=== PATIENT | male | born 1985 | race Caucasian/White ===

== ENCOUNTER → 2017-07-16 | Outpatient (REF) | payer OTHER, MEDICAID ==
[2017-07-16 11:45] LABS: BASO % 0.7 % (0.0-1.0); EOS # 0.1 10^3/uL (0.0-0.50); EOS % 1.1 % (0.0-3.0); HEMATOCRIT 46.5 % (42.0-52.0); HEMOGLOBIN 15.3 g/dl (14.0-18.0); IMMATURE GRANULOCYTE % 0.2 % (0-3.0); LYMPH % 37.6 % (24.0-44.0); MEAN CORPUSCULAR HGB CONC 32.9 g/dl (32.0-36.5); MEAN CORPUSCULAR VOLUME 88.1 fl (80.0-96.0); MONO # 0.5 10^3/uL (0.0-0.8); MONO % 8.8 % (0.0-5.0); NEUTROPHILS # 2.8 10^3/uL (1.8-7.7); NEUTROPHILS % 51.6 % (36.0-66.0); PLATELET COUNT, AUTOMATED 183 10^3/uL (150-450); RED BLOOD COUNT 5.28 10^6/uL (4.30-6.10); RED CELL DISTRIBUTION WIDTH 14.5 % (11.5-14.5); WHITE BLOOD COUNT 5.4 10^3/uL (4.0-10.0)
[2017-07-16 12:16] LABS: ALBUMIN 4.6 GM/DL (3.2-5.2); ALBUMIN/GLOBULIN RATIO 1.35 (1.00-1.93); ALKALINE PHOSPHATASE 76 U/L (45-117); ALT/SGPT 19 U/L (12-78); ANION GAP 9 MEQ/L (8-16); AST/SGOT 12 U/L (7-37); BILIRUBIN,TOTAL 0.8 MG/DL (0.2-1.0); BLOOD UREA NITROGEN 10 MG/DL (7-18); CALCIUM LEVEL 9.5 MG/DL (8.5-10.1); CARBON DIOXIDE LEVEL 28 MEQ/L (21-32); CHLORIDE LEVEL 103 MEQ/L (98-107); CHOLESTEROL LEVEL 139 MG/DL (<200); CHOLESTEROL RISK RATIO 2.355 (<5); CREATININE FOR GFR 1.05 MG/DL (0.70-1.30); GLOMERULAR FILTRATION RATE > 60.0 (>60); GLUCOSE, FASTING 80 MG/DL (70-100); HDL CHOLESTEROL 59 MG/DL (>40); LDL CHOLESTEROL 65.2 MG/DL (<100); NON-HDL-C 80 MG/DL; POTASSIUM SERUM 4.3 MEQ/L (3.5-5.1); SODIUM LEVEL 140 MEQ/L (136-145); TRIGLYCERIDES LEVEL 74 MG/DL (<150)
[2017-07-21 14:12] LABS: TESTOSTERONE %FREE+WEAKLY BOUN 27.1 % (9.0-46.0); TESTOSTERONE FREE+WEAKLY BOUND 126.8 ng/dL (40.0-250.0); TESTOSTERONE TOTAL 468 ng/dL (264-916)
== END ==
LOC: M SFHCCLAY 09:43
DX: Z13.6 Encounter for screening for cardiovascular disorders (principal); R79.89 Other specified abnormal findings of blood chemistry
CPT/HCPCS: 84443

== ENCOUNTER → 2017-07-30 | Outpatient (REF) | payer OTHER, MEDICAID ==
[2017-07-30 14:41] LABS: ALBUMIN 4.7 GM/DL (3.2-5.2); ALBUMIN/GLOBULIN RATIO 1.42 (1.00-1.93); ALKALINE PHOSPHATASE 69 U/L (45-117); ALT/SGPT 23 U/L (12-78); ANION GAP 8 MEQ/L (8-16); AST/SGOT 24 U/L (7-37); BILIRUBIN,TOTAL 0.6 MG/DL (0.2-1.0); BLOOD UREA NITROGEN 13 MG/DL (7-18); CALCIUM LEVEL 9.3 MG/DL (8.5-10.1); CARBON DIOXIDE LEVEL 27 MEQ/L (21-32); CHLORIDE LEVEL 105 MEQ/L (98-107); CREATININE FOR GFR 1.03 MG/DL (0.70-1.30); GLOMERULAR FILTRATION RATE > 60.0 (>60); GLUCOSE, FASTING 85 MG/DL (70-100); POTASSIUM SERUM 4.2 MEQ/L (3.5-5.1); SODIUM LEVEL 140 MEQ/L (136-145)
[2017-07-31 08:16] LABS: HEPATITIS A IgG TOTAL Negative (Negative)
[2017-07-31 08:16] LABS: HEPATITIS B CORE ANTIBODY IGG Negative (Negative)
[2017-07-31 12:00] LABS: HEPATITIS C VIRUS ABY INDEX 0.2 INDEX (<0.8)
[2017-07-31 12:01] LABS: HIV 1&2 SCREEN CENTAUR NEGATIVE (NEGATIVE)
== END ==
LOC: M LAB REF 13:15
DX: Z00.00 Encounter for general adult medical examination without abnormal findings (principal)
CPT/HCPCS: 86704

== ENCOUNTER → 2017-09-10 | Outpatient (CLI) | payer OTHER ==
[2017-09-11 10:18] LABS: PROLACTIN 18.5 NG/ML (2.1-17.7)
[2017-09-11 10:18] LABS: TESTOSTERONE 258 NG/DL (241-827)
[2017-09-11 10:19] LABS: FOLLICLE STIMULATING HORMONE 2.2 mIU/mL (1.4-18.1); LUTEINIZING HORMONE 1.8 mIU/mL (1.5-9.3)
== END ==
LOC: M WUC 09:50
DX: E29.1 Testicular hypofunction (principal)
CPT/HCPCS: 83001

== ENCOUNTER → 2018-01-26 | Outpatient (CLI) | payer OTHER | LOC: M WUC 09:24 | DX: R76.11 Nonspecific reaction to tuberculin skin test without active tuberculosis (principal) | CPT/HCPCS: 71046 ==

== ENCOUNTER 2018-03-07 02:29 | Emergency (ER) | payer OTHER | END 2018-03-07 03:38 | disposition home or self-care (01) | LOC: M ED 02:29 | DX: F43.0 Acute stress reaction (principal) | CPT/HCPCS: 99283 ==

== ENCOUNTER → 2019-01-04 | Outpatient (REF) | payer OTHER, MEDICAID ==
[2019-01-05 17:47] LABS: APPEARANCE, URINE CLEAR (CLEAR); BACTERIA, URINE AUTO NEGATIVE (NEGATIVE); BILIRUBIN, URINE AUTO NEGATIVE (NEGATIVE); BLOOD, URINE BLOOD NEGATIVE (NEGATIVE); COLOR, URINE YELLOW (YELLOW); GLUCOSE, URINE (UA) AUTO NEGATIVE (NEGATIVE); KETONE, URINE AUTO NEGATIVE (NEGATIVE); LEUKOCYTE ESTERASE, URINE AUTO NEGATIVE (NEGATIVE); MUCUS, URINE SMALL (NEGATIVE); NITRITE, URINE AUTO NEGATIVE (NEGATIVE); PROTEIN, URINE AUTO NEGATIVE (NEGATIVE); RBC, URINE AUTO 1 /HPF (0-3); SPECIFIC GRAVITY URINE AUTO 1.014 (1.002-1.035); SQUAMOUS EPITHELIAL CELL UR AU 0 /HPF (0-6); UROBILINOGEN, URINE AUTO 0.2 mg/dL (0.0-2.0); WBC, URINE AUTO 0 /HPF (0-3)
[2019-01-05 21:38] LABS: CHLAMYDIA DNA AMPLIFICATION NEGATIVE (NEGATIVE); GC DNA AMPLIFICATION NEGATIVE (NEGATIVE)
== END ==
LOC: M SFHCCAPE 16:11
PROVIDERS: ATTEND Physician Assistant
DX: R10.32 Left lower quadrant pain (principal); R10.31 Right lower quadrant pain

== ENCOUNTER → 2019-01-05 | Outpatient (CLI) | payer OTHER ==
--- NOTE | 2019-01-05 10:10 | REP ---
Scrotal sonography: History: Bilateral groin pain. Scrotal pain. Findings: High-resolution bilateral scrotal sonography shows no evidence of intratesticular mass lesion on either side. Testicular parenchyma is normal and homogeneous. Normal Doppler flow is seen in both testes with resistive indices measured at 0.77 and 0.71 on the right and left respectively by Doppler. Right testicular dimensions are 5.7 x 2.8 x 3.5 cm. Left testis measures 5.1 x 2.4 x 3.2 cm. There are tiny epididymal cysts, the largest of which is on the right measuring 2 mm. Impression: Normal bilateral scrotal sonography. Normal Doppler flow. Electronically Signed by Daren Bradley MD 01/05/2019 08:53 P
--- NOTE | 2019-01-05 10:19 | REP ---
Bilateral soft tissue ultrasound of the inguinal canal regions. History: Bilateral groin pain. Findings: The right inguinal canal has a normal appearance at rest and with Valsalva. On the left, there appears to be a small quantity of peritoneal fat extending into the proximal inguinal canal with Valsalva suggesting a small low left inguinal hernia. No cyst or mass is seen. Electronically Signed by Daren Bradley MD 01/05/2019 08:55 P
== END ==
LOC: M RAD 07:23
PROVIDERS: ATTEND Physician Assistant
DX: N50.811 Right testicular pain (principal); N50.812 Left testicular pain

== ENCOUNTER → 2019-11-16 | Outpatient (CLI) | payer BC | LOC: M OUTALCOH 07:59 | PROVIDERS: ATTEND Psychiatry & Neurology Addiction Medicine | DX: Z03.89 Encounter for observation for other suspected diseases and conditions ruled out (principal) ==

== ENCOUNTER → 2019-11-22 | Outpatient (RCR) | payer BC | LOC: M OUTALCOH 11:09 | PROVIDERS: ATTEND Psychiatry & Neurology Addiction Medicine | DX: F19.20 Other psychoactive substance dependence, uncomplicated (principal) ==

== ENCOUNTER → 2020-06-08 | Outpatient (CLI) | payer SELFPAY | LOC: M LABSMTC 13:10 | PROVIDERS: ATTEND Pediatrics | DX: Z20.822 Contact with and (suspected) exposure to COVID-19 (principal) ==

== ENCOUNTER → 2020-06-20 | Outpatient (CLI) | payer SELFPAY | LOC: M LABSMTC 13:34 | PROVIDERS: ATTEND Pediatrics | DX: Z20.822 Contact with and (suspected) exposure to COVID-19 (principal) ==

== ENCOUNTER 2021-07-30 18:27 | Emergency (ER) | payer BC ==
[~2021-07-30] VITALS: Ht 185.4 cm; Wt 86.4 kg
[2021-07-30 18:28] VITALS: BP 126/66
[2021-07-30 19:07] LABS: BILIRUBIN, URINE MANUAL OBSCURED (NEGATIVE); GLUCOSE, URINE (UA) MANUAL OBSCURED mg/dL (NEGATIVE); KETONE, URINE MANUAL OBSCURED mg/dL (NEGATIVE); UROBILINOGEN, URINE MANUAL OBSCURED mg/dl (NORMAL)
[2021-07-30 19:36] LABS: RBC, URINE TNTC /hpf (0-3)
[2021-07-30 19:37] LABS: BACTERIA, URINE NONE SEEN; HYALINE CAST, URINE NONE SEEN /lpf (0-1); SQUAMOUS EPITHELIAL CELL URINE NONE SEEN /hpf (SMALL AMT)
[2021-07-30 20:45] LABS: BASO % 0.4 % (0.0-1.0); EOS # 0.1 10^3/uL (0.0-0.5); EOS % 0.8 % (0.0-3.0); HEMATOCRIT 41.1 % (42.0-52.0); HEMOGLOBIN 13.4 g/dl (13.5-17.5); LYMPH # 2.1 10^3/uL (1.5-5.0); LYMPH % 20.1 % (24.0-44.0); MEAN CORPUSCULAR HEMOGLOBIN 29.4 pg (27.0-33.0); MEAN CORPUSCULAR HGB CONC 32.6 g/dl (32.0-36.5); MEAN CORPUSCULAR VOLUME 90.1 fl (80.0-96.0); MONO % 9.4 % (2.0-8.0); NEUTROPHILS # 7.2 10^3/uL (1.5-8.5); NEUTROPHILS % 68.9 % (36.0-66.0); PLATELET COUNT, AUTOMATED 204 10^3/uL (150-450); RED BLOOD COUNT 4.56 10^6/uL (4.30-6.10); WHITE BLOOD COUNT 10.4 10^3/uL (4.0-10.0)
[2021-07-31 00:01] LABS: GC DNA AMPLIFICATION NEGATIVE (NEGATIVE)
== END 2021-07-30 22:01 | disposition home or self-care (01) ==
LOC: M ED 18:27
DX: R31.9 Hematuria, unspecified (principal); D64.9 Anemia, unspecified; K59.00 Constipation, unspecified; N32.89 Other specified disorders of bladder; F10.10 Alcohol abuse, uncomplicated; Z87.442 Personal history of urinary calculi

== ENCOUNTER → 2021-08-02 | Outpatient (REF) | payer BC, MEDICAID ==
[2021-08-02 13:52] LABS: APPEARANCE, URINE CLEAR (CLEAR); BACTERIA, URINE AUTO NEGATIVE (NEGATIVE); BILIRUBIN, URINE AUTO NEGATIVE (NEGATIVE); BLOOD, URINE BLOOD NEGATIVE (NEGATIVE); COLOR, URINE YELLOW (YELLOW); GLUCOSE, URINE (UA) AUTO NEGATIVE (NEGATIVE); KETONE, URINE AUTO NEGATIVE (NEGATIVE); LEUKOCYTE ESTERASE, URINE AUTO NEGATIVE (NEGATIVE); NITRITE, URINE AUTO NEGATIVE (NEGATIVE); PROTEIN, URINE AUTO NEGATIVE (NEGATIVE); RBC, URINE AUTO 0 /HPF (0-3); SPECIFIC GRAVITY URINE AUTO 1.018 (1.002-1.035); SQUAMOUS EPITHELIAL CELL UR AU 0 /HPF (0-6); UROBILINOGEN, URINE AUTO 0.2 mg/dL (0.0-2.0); WBC, URINE AUTO 1 /HPF (0-3)
== END ==
LOC: M SMT 12:47
PROVIDERS: ATTEND Physician Assistant
DX: R31.0 Gross hematuria (principal)

== ENCOUNTER → 2021-11-04 | Outpatient (CLI) | payer BC, MEDICAID ==
[2021-11-04 13:29] LABS: APPEARANCE, URINE CLEAR (CLEAR); BACTERIA, URINE AUTO NEGATIVE (NEGATIVE); BILIRUBIN, URINE AUTO NEGATIVE (NEGATIVE); BLOOD, URINE BLOOD NEGATIVE (NEGATIVE); COLOR, URINE YELLOW (YELLOW); GLUCOSE, URINE (UA) AUTO NEGATIVE (NEGATIVE); KETONE, URINE AUTO NEGATIVE (NEGATIVE); LEUKOCYTE ESTERASE, URINE AUTO NEGATIVE (NEGATIVE); NITRITE, URINE AUTO NEGATIVE (NEGATIVE); PROTEIN, URINE AUTO NEGATIVE (NEGATIVE); RBC, URINE AUTO 1 /HPF (0-3); SPECIFIC GRAVITY URINE AUTO 1.018 (1.002-1.035); SQUAMOUS EPITHELIAL CELL UR AU 0 /HPF (0-6); UROBILINOGEN, URINE AUTO 0.2 mg/dL (0.0-2.0); WBC, URINE AUTO 0 /HPF (0-3)
== END ==
LOC: M WUC 09:10
PROVIDERS: ATTEND Physician Assistant
DX: R31.0 Gross hematuria (principal); N20.0 Calculus of kidney

== ENCOUNTER → 2022-06-04 | Outpatient (CLI) | payer BC, MEDICAID | LOC: M RAD 17:29 | PROVIDERS: ATTEND Physician Assistant | DX: N20.0 Calculus of kidney (principal) ==

== ENCOUNTER → 2022-06-11 | Outpatient (REF) | payer BC, MEDICAID | LOC: M SFHCCLAY 10:38 | PROVIDERS: ATTEND Physician Assistant | DX: N52.9 Male erectile dysfunction, unspecified (principal) ==

== ENCOUNTER 2023-05-11 02:59 | Emergency (ER) | payer BC, MEDICAID ==
[~2023-05-11] VITALS: Ht 180.3 cm; Wt 90.9 kg
[2023-05-11 08:17] LABS: BASO % 0.1 % (0.0-1.0); HEMATOCRIT 46.3 % (42.0-52.0); HEMOGLOBIN 15.2 g/dl (13.5-17.5); LYMPH # 1.6 10^3/uL (1.5-5.0); LYMPH % 10.4 % (24.0-44.0); MEAN CORPUSCULAR HEMOGLOBIN 30.3 pg (27.0-33.0); MEAN CORPUSCULAR HGB CONC 32.8 g/dl (32.0-36.5); MEAN CORPUSCULAR VOLUME 92.2 fl (80.0-96.0); MONO # 1.3 10^3/uL (0.0-0.8); MONO % 8.7 % (2.0-8.0); NEUTROPHILS # 12.4 10^3/uL (1.5-8.5); NEUTROPHILS % 80.4 % (36.0-66.0); PLATELET COUNT, AUTOMATED 186 10^3/uL (150-450); RED BLOOD COUNT 5.02 10^6/uL (4.30-6.10); WHITE BLOOD COUNT 15.4 10^3/uL (4.0-10.0)
[2023-05-11 09:07] LABS: ERYTHROCYTE SEDIMENTATION RATE 17 mm/hr (0-15)
[2023-05-11 09:25] LABS: BLOOD UREA NITROGEN 17 MG/DL (9-23); CALCIUM LEVEL 9.9 MG/DL (8.5-10.1); CARBON DIOXIDE LEVEL 27 MMOL/L (20-31); CHLORIDE LEVEL 102 MMOL/L (98-107); CREATININE FOR GFR 1.21 MG/DL (0.70-1.30); GLOMERULAR FILTRATION RATE > 60.0 (>60); GLUCOSE, FASTING 62 MG/DL (60-100); POTASSIUM SERUM 5.1 MMOL/L (3.5-5.1); SODIUM LEVEL 138 MMOL/L (136-145)
[2023-05-11] MEDS ORDERED: PROHANCE 279.3MG/ML 5ML VIAL As Ordered ONE (10:27)
[2023-05-11] MEDS ORDERED: PROHANCE 279.3MG/ML 15ML VIAL As Ordered ONE (10:28)
[2023-05-11] MEDS ORDERED: dexAMETHasone 20MG/5ML VIAL IV ONE (12:40)
[2023-05-11 14:37] VITALS: BP 125/67; TEMP 99.1; O2SAT 96
== END 2023-05-11 14:40 | disposition short-term general hospital (02) ==
LOC: M ED 02:59
DX: M51.27 Other intervertebral disc displacement, lumbosacral region (principal); M51.26 Other intervertebral disc displacement, lumbar region; M54.16 Radiculopathy, lumbar region; M47.817 Spondylosis without myelopathy or radiculopathy, lumbosacral region; N20.0 Calculus of kidney
CPT/HCPCS: 72131; 72158; 80048; 85025; 85652; 86140; 87635; 96374; 99285; A9576; J1100

== ENCOUNTER 2023-05-17 14:34 | Emergency (ER) | payer BC ==
[~2023-05-17] VITALS: Ht 185.4 cm; Wt 85.6 kg
[2023-05-17 14:47] VITALS: TEMP 97.2
[2023-05-17] MEDS ORDERED: NS 1,000 ML IV ONE (14:50)
[2023-05-17 15:15] VITALS: BP 126/82
[2023-05-17 15:34] VITALS: O2SAT 98
== END 2023-05-17 16:39 | disposition left against medical advice (07) ==
LOC: M ED 14:34 → EEVIPCON 14:34 → M ED 16:39
DX: T40.1X1A Poisoning by heroin, accidental (unintentional), initial encounter (principal); F17.200 Nicotine dependence, unspecified, uncomplicated; F19.10 Other psychoactive substance abuse, uncomplicated; Z53.9 Procedure and treatment not carried out, unspecified reason